=== PATIENT | male | born 1945 | race Caucasian/White ===

== ENCOUNTER 2022-01-23 10:09 | Emergency (ER) | payer MEDICARE ==
[2022-01-23 10:15] VITALS: BP 130/67
[2022-01-23 10:20] VITALS: BP 130/67
--- NOTE | 2022-01-23 10:38 | ER.PDOC ---
General Chief Complaint: Requesting Medical Care Stated Complaint: FALL Time seen by MD: 10:25 Source: patient Exam Limitations: no limitations History of Present Illness Initial Comments This 76-year-old white male was in the bathtub getting his shower this morning slipped fell struck his forehead has a minor abrasion on the forehead. Patient comes in because he was instructed to do so because he is on Eliquis. He states the only thing that has anything at all is little bit of stiffness in his neck he has no other sensory or motor changes he denies a headache. He has no other acute complaints of any type. Occurred: just prior to arrival Where: home Severity: mild Injuries/Pain Location: head (Scalp abrasion) Context: Slipped (Slipped in the bathtub) Modifying Factors: improves with other (None) Associated Symptoms: denies symptoms Past Medical History Medical History: cardiac problems, hypertension Surgical History: coronary bypass surgery, other (Right total knee and right total hip replacements) Social History Smoking: cigarettes Alcohol Use: none Drug Use: none Review of Systems Constitutional: denies no symptoms reported, denies see HPI, denies chills, denies diaphoresis, denies fever, denies malaise, denies weakness, denies other Eyes: denies no symptoms reported, denies see HPI, denies blindness, denies blurred vision, denies drainage, denies decreased acuity, denies foreign body sensation, denies inflammation, denies pain, denies photophobia, denies previous injury, denies shadows, denies tunnel vision, denies vision change, denies contact lenses, denies glasses, denies other Ears, Nose, Mouth, Throat: denies no symptoms reported, denies see HPI, denies ear pain, denies ear discharge, denies nose pain, denies nose discharge, denies epistaxis, denies mouth pain, denies mouth swelling, denies loose teeth, denies throat pain, denies throat swelling Respiratory: denies no symptoms reported, denies see HPI, denies cough, denies orthopnea, denies shortness of breath, denies stridor, denies wheezing, denies other Cardiovascular: denies no symptoms reported, denies see HPI, denies chest pain, denies edema, denies palpitations, denies syncope, denies other Gastrointestinal: denies no symptoms reported, denies see HPI, denies abdominal pain, denies constipation, denies diarrhea, denies nausea, denies vomiting, denies other Genitourinary: denies no symptoms reported, denies see HPI, denies discharge, denies dysuria, denies frequency, denies hematuria, denies pain, denies other Musculoskeletal: denies no symptoms reported, denies see HPI, denies back pain, denies gout, denies joint pain, denies joint swelling, denies muscle pain, denies muscle stiffness, denies neck pain, denies other Skin: denies no symptoms reported, denies see HPI, denies change in color, denies change in hair/nails, denies dryness, denies lesions, denies lumps, denies rash, denies other Psychiatric/Neurological: denies no symptoms reported, denies see HPI, denies anxiety, denies depressed, denies emotional problems, denies headache, denies numbness, denies paresthesia, denies pre-existing deficit, denies seizure, denie s tingling, denies tremors, denies weakness, denies other Physical Exam General Appearance: No Apparent Distress, WD/WN Head: Other (Abrasion to frontal scalp.) Eyes: bilateral eye normal inspection, bilateral eye PERRL, bilateral eye EOMI Ears, Nose, Mouth, Throat: No Evidence of ENT Injury, No Dental Injury, Decreased Hearing Neck: Non-Tender, Normal Alignment, Nexus criteria neg, Normal Inspection Cardiovascular/Respiratory: Regular Rate, Rhythm, No M/R/G, Normal Peripheral Pulses, No JVD, Normal Breath Sounds, No Respiratory Distress Gastrointestinal: Normal Bowel Sounds, No Organomegaly, No Pulsatile Mass, Non Tender, Soft Back: Normal Inspection Extremities: No Evidence of Injury, Normal Range of Motion, Non-Tender, No Pedal Edema Skin: Normal Color, Warm/Dry [place] Coma Score Best Eye Response: (4) Open Spontaneously Best Verbal Response: (5) Oriented Best Motor Response: (6) Obeys Commands [place] Total: 10 Results/Orders Results/Orders Orders - CHLOÉ MELÉNDEZ MD Ct Head Wo Contrast (01/23/22 10:14) Diph,Pertuss(Acell),Tet Vac/Pf (Boostrix (01/23/22 11:30) Vital Signs Date Time Temp Pulse Resp B/P (MAP) Pulse Ox O2 Delivery O2 Flow Rate FiO2 01/23/22 10:20 97.9 67 18 130/67 (88) 99 Room Air* 0 21 01/23/22 10:15 97.9 67 18 99 01/23/22 10:15 97.9 67 18 Progress Progress CONCLUSION:No acute intracranial finding on noncontrast CT head. Involutional changes, as above. ER DEPART Departure Time of Disposition: 11:06 Disposition: 01 HOME / SELF CARE / HOMELESS Impression: Primary Impression: Fall Additional Impressions: Scalp abrasion Head injury, acute Condition: Stable Duration or Time Spent with Pa: 15m Problem Qualifiers CHLOÉ MELÉNDEZ MD Jan 23, 2022 10:38
--- NOTE | 2022-01-23 10:50 | DIREP ---
PROCEDURE:CT HEAD OR BRAIN W/O CONTRAST COMPARISON:None. INDICATIONS:Head injury on Eliquis TECHNIQUE:CT images were created without intravenous contrast. FINDINGS: VENTRICLES:There is mild to moderate prominence of the ventricles and cortical sulci consistent with age related involutional changes. CEREBRUM:Normal cerebral morphology with appropriate reyes white matter differentiation. CEREBELLUM:Negative. BRAINSTEM:Negative. BASAL CISTERNS:Negative. HEMORRHAGE (Vol L*W*H*.52):No MASS LESION:No ACUTE INFARCT:No SKULL:Normal. SINUSES:Normal. OTHER:Soft tissue swelling at the right forehead. There are streak artifacts related to the inner table of the skull posteriorly and inferiorly adjacent to the cerebrum. CONCLUSION:No acute intracranial finding on noncontrast CT head. Involutional changes, as above. Dictated by: Susie Tomlinson MD on 01/23/2022 at 10:46 AM
[2022-01-23] MEDS ORDERED: BOOSTRIX IM ONE ×2 (11:08→11:30)
--- NOTE | 2022-01-23 11:22 | NUR ---
BOOSTRIX 0.5CC BOSTRIX GIVEN IN R DELTOID. [id number] EXP10/15/23. COULD NOT DOCUMENT IN [employer] THAT IT WAS GIVEN.
== END 2022-01-23 11:12 | disposition home or self-care (01) ==
LOC: ER 10:09
DX: S00.01XA Abrasion of scalp, initial encounter (principal); F17.210 Nicotine dependence, cigarettes, uncomplicated; I10 Essential (primary) hypertension; W18.2XXA Fall in (into) shower or empty bathtub, initial encounter; Y93.89 Activity, other specified; Y92.009 Unspecified place in unspecified non-institutional (private) residence as the place of occurrence of the external cause; Y99.8 Other external cause status; Z95.1 Presence of aortocoronary bypass graft
CPT/HCPCS: 70450; 90471; 90715; 99284

== ENCOUNTER 2022-11-07 13:06 | Emergency (ER) | payer MEDICARE ==
[~2022-11-07] VITALS: Ht 182.9 cm; Wt 86.2 kg
[2022-11-07 13:13] VITALS: BP 145/85
--- NOTE | 2022-11-07 13:13 | NUR ---
ARRIVAL PT AMBULATES TO ED7 WITH C/O GENERALIZED BODYACHES THAT STARTED YESTERDAY. PT STATES HE IS TRAVELLING AND MISSED HIS DIALYSIS APPOINTMENT YESTERDAY. PT STATES HE WAS NOT SCHEDULED WITH THE DIALYSIS CENTER HE THOUGHT HE WAS. PT STATES HE RECEIVES DIALYSIS EVERY SUNDAY, SUNDAY, SUNDAY. PT DENIES ANY PAIN. VITALS OBTAINED. NOTIFIED OF PTS ARRIVAL.
--- NOTE | 2022-11-07 13:31 | ER.PDOC ---
General Chief Complaint: General Complaint Stated Complaint: GENERAL TRAVEL OUT OF US: No Time seen by MD: 13:31 Source: patient Exam Limitations: no limitations (although pt is [place] and has lost his hearing aid) History of Present Illness Initial Comments 77 yo M has myalgias/malaise for a day or two. Traveling, has ESRD, had dialysis appointments on the road coordinated for him but for some reason missed yesterday's. Dialysis appointments have been sporadic, 1-2x/week while traveling, and preceding this the prior one was the preceding Sunday. Advised by his nephrology provider to receive more urgent evaluation. Timing/Duration: unsure Severity: mild, moderate Associated Symptoms: malaise Allergies: Coded Allergies: alcohol (Verified Allergy, Unknown, 11/07/22) codeine (Verified Allergy, Unknown, 11/07/22) Past Medical History Medical History: GERD, high cholesterol, hypertension, renal disease Surgical History: appendectomy, coronary bypass surgery, hip, knee, other Family History Significant Family History: no pertinent family hx Social History Smoking: cigarettes Alcohol Use: none Drug Use: none Reviewed Nursing Reviewed: Vital Signs, Abn. Noted, Nursing Assessment Review of Systems Constitutional: malaise EENTM: no symptoms reported Respiratory: no symptoms reported Cardiovascular: no symptoms reported Gastrointestinal: no symptoms reported Genitourinary: see HPI Musculoskeletal: no symptoms reported Skin: no symptoms reported Psychiatric/Neurological: no symptoms reported Hematologic/Lymphatic: no symptoms reported All Other Systems: Reviewed and Negative Physical Exam General Appearance: No Apparent Distress, WD/WN EENT: nml ENT inspection (nl to cursory inspection) Neck: Supple Respiratory: normal breath sounds CVS: reg rate & rhythm Gastrointestinal: Non Tender Back: Normal Inspection (nl to cursory inspection) Neurologic/Psychiatric: No Motor/Sensory Deficits, Alert, Normal Mood/Affect (hard of hearing, otherwise no deficit) Skin: Normal Color Results/Orders Results/Orders Orders - CECILIA SAMANO MD Basic Metabolic Panel (11/07/22 13:30) Vital Signs Date Time Temp Pulse Resp B/P (MAP) Pulse Ox O2 Delivery O2 Flow Rate FiO2 11/07/22 13:13 97.6 69 20 11/07/22 13:13 97.6 69 20 99 11/07/22 13:13 97.6 69 20 145/85 (105) 99 Room Air* 0 21 Laboratory Tests Test 11/07/22 13:42 Sodium Level 143 mmol/L (132-145) Potassium Level 4.8 mmol/L (3.6-5.2) Chloride Level 106.0 mmol/L (96-109) Carbon Dioxide Level 22.7 mmol/L (20.0-32) Glucose Level 93 mg/dL (70-110) Blood Urea Nitrogen 79 mg/dL (7-18) H Creatinine 9.72 mg/dL (0.59-1.40) *H Calcium Level 8.9 mg/dL (8.4-10.5) Anion Gap 19.1 Estimated GFR () 6.3 (>/=60) Est GFR (CKD-EPI)(Non-Afr [place]) 5.2 (>/=60) BUN/Creatinine Ratio 8.0 (10.0-20.0) L Progress Progress If there is a significant electrolyte abnormality, we will obtain EKG and see about transfer for urgent dialysis. If not, we have counseled pt to communicate with his guide setter's office about getting his upcoming Sunday appointment moved up. No significant electrolyte abnormality (Na 143, K 4.8.) There is no suggestion of volume overload on exam, either the extremities or lungs. We will recommend as I have described. ER DEPART Departure Time of Disposition: 14:26 Disposition: HOME / SELF CARE / HOMELESS Impression: Primary Impression: ESRD (end stage renal disease) on dialysis Condition: Stable Patient Instructions: Dialysis, Dialysis Diet Referrals: PCP,UNKNOWN (PCP) PRIMARY CARE PROVIDER Additional Instructions: Our tests here to not show that your electrolytes are abnormal in an emergency way. Even so, you should contact your kidney doctor's office, this afternoon if possible, and ask them to help you move up your dialysis appointment to tomorrow or the next day, rather than waiting. Duration or Time Spent with Pa: 10 min CECILIA SAMANO MD Nov 07, 2022 13:31
[2022-11-07 13:59] LABS: CARBON DIOXIDE 22.7 mmol/L (20.0-32)
--- NOTE | 2022-11-07 14:20 | NUR ---
CRITICAL LAB CREATININE 9.72, NOTIFIED AT THIS TIME.
[2022-11-07 14:32] VITALS: BP 145/74
== END 2022-11-07 14:33 | disposition home or self-care (01) ==
LOC: ER 13:06
DX: N18.6 End stage renal disease (principal); I12.0 Hypertensive chronic kidney disease with stage 5 chronic kidney disease or end stage renal disease; E78.00 Pure hypercholesterolemia, unspecified; K21.9 Gastro-esophageal reflux disease without esophagitis; F17.210 Nicotine dependence, cigarettes, uncomplicated; Z90.49 Acquired absence of other specified parts of digestive tract; Z95.1 Presence of aortocoronary bypass graft; Z99.2 Dependence on renal dialysis; Z88.5 Allergy status to narcotic agent
CPT/HCPCS: 36415; 80048; 99283